=== PATIENT | male | born 1965 | race Caucasian/White ===

== ENCOUNTER 2017-07-10 08:21 | Emergency (ER) | payer MEDICARE ==
[~2017-07-10] VITALS: Ht 182.9 cm; Wt 113.6 kg
[~2017-07-10 08:21] MED LIST: ASPIRIN E.C. 8181 MG PO; ATIVAN 0.50.5 MG/TAB PO; CELEXA40 MG PO; CIPRO 500MG TA500 MG PO; COUMADIN 1MG1 MG/TAB PO; FLAGYL500 MG PO; JANTOVEN5 MG PO; KEPPRA1000 MG PO; KLONOPIN 1MG1 MG PO; LEVAQUIN 750MG750 M1 PO; LIPITOR20 MG PO; LOPRESSOR 225 MG/TAB PO; MEVACOR 20M20 MG/TAB PO; NORCO 325 MG-51 TAB PO; PLAVIX 75MG TAB75 MG PO; PRAVACHOL 40MG40 MG PO; RISPERDAL 0.5M0.5 MG PO; SENOKOT S 50 MG1 TAB PO; TYLENOL 325MG325 MG PO; VIMPAT150 MG PO; VIMPAT200 MG PO; ZOFRAN ODT4 MG PO; ZOLOFT 50MG50 MG PO
[2017-07-10 08:23] VITALS: TEMP 99
[2017-07-10] MEDS ORDERED: CIPRO 500MG TA500 MG PO (09:01)
[2017-07-10] MEDS ORDERED: FLAGYL500 MG PO (09:01)
[2017-07-10] MEDS ORDERED: NORCO 325 MG-51 TAB PO (09:03)
[2017-07-10] MEDS ORDERED: ZOFRAN 4MG T4 MG/TAB PO (09:03)
[2017-07-10 09:17] LABS: BASO # 0.1 (0.0-0.2); BASO % 0.4 % (0.0-2.0); EOS # 0.1 (0.0-0.7); EOS % 0.8 % (0-4.0); GRAN # 11.1 (1.4-6.5); GRAN % 80.4 % (42.2-75.2); HEMATOCRIT 43.9 % (42.0-52.0); HEMOGLOBIN 15.3 g/dl (13.5-18.0); LYMPH # 1.5 (1.2-3.4); LYMPH % 11.1 % (20.0-51.0); MEAN CELL VOLUME 93 fl (80.0-100.0); MEAN CORPUSCULAR HEMOGLOBIN 33 pg (27.0-31.0); MEAN CORPUSCULAR HGB CONC 35 g/dl (33.0-37.0); MEAN PLATELET VOLUME 9.7 fl (7.4-10.4); MONO # 0.9 (0.1-0.6); MONO % 6.5 % (1.7-9.3); PLATELET COUNT 207 K/mm3 (130-400); RED BLOOD COUNT 4.71 M/mm3 (4.20-5.60); REDCELL DISTRIBUTION WIDTH-CV 12.1 % (11.5-14.5); WHITE BLOOD COUNT 13.8 K/mm3 (4.8-10.8)
[2017-07-10 09:22] LABS: PROTHROMBIN TIME 23.3 SECONDS (9.7-12.8)
[2017-07-10 09:30] LABS: ADJUSTED CALCIUM 9.3 mg/dL (8.4-10.2); ALBUMIN 4.4 gm/dL (3.5-5.0); BILIRUBIN,TOTAL 1.2 mg/dL (0.0-1.0); C-REACTIVE PROTEIN 7.5 mg/dL (0.0-0.9); CALCIUM 9.6 mg/dL (8.4-10.2); CREATININE, serum 0.89 mg/dL (0.66-1.25); POTASSIUM 4.1 mmol/L (3.4-5.0); TOTAL PROTEIN 7.7 gm/dL (6.4-8.2)
[2017-07-10 10:10] LABS: PH 7 (5-8); SQUAMOUS EPITHELIAL None Seen /hpf; URINE APPEARANCE Clear; URINE BACTERIA None Seen /hpf; URINE BILIRUBIN Negative (NEGATIVE); URINE BLOOD Negative (NEGATIVE); URINE COLOR Yellow; URINE GLUCOSE Negative (NEGATIVE); URINE KETONE Negative (NEGATIVE); URINE RBC 0-2 /hpf; URINE UROBILINOGEN Negative (NEGATIVE); URINE WBC 0-2 /hpf
[2017-07-10 11:22] VITALS: BP 114/79; PULSE 86
== END 2017-07-10 11:05 | disposition home or self-care (01) ==
LOC: COL.ER 08:21
PROVIDERS: Emergency Medicine
DX: K57.92 Diverticulitis of intestine, part unspecified, without perforation or abscess without bleeding (principal); Z79.01 Long term (current) use of anticoagulants
CPT/HCPCS: J1170; J1885; J2405; J7030

== ENCOUNTER 2018-10-13 15:36 | Emergency (ER) | payer MEDICARE ==
[~2018-10-13] VITALS: Ht 182.9 cm; Wt 113.6 kg
[~2018-10-13 15:36] MED LIST changes: -COUMADIN 1MG1 MG/TAB PO; +COUMADIN 5MG5 MG/TAB PO; +ZOFRAN 4MG T4 MG/TAB PO; +ZOLOFT 100MG100 MG PO
[2018-10-13 15:44] VITALS: TEMP 99.4
[2018-10-13 16:24] LABS: COLLECTION METHOD CLEAN CATCH
[2018-10-13 16:28] LABS: BASO # 0.1 (0.0-0.2); BASO % 0.5 % (0.0-2.0); EOS # 0.2 (0.0-0.7); GRAN # 11.9 (1.4-6.5); GRAN % 76.5 % (42.2-75.2); HEMATOCRIT 41.3 % (42.0-52.0); HEMOGLOBIN 14.1 g/dl (13.5-18.0); LYMPH # 1.9 (1.2-3.4); LYMPH % 11.9 % (20.0-51.0); MEAN CELL VOLUME 94 fl (80.0-100.0); MEAN CORPUSCULAR HEMOGLOBIN 32 pg (27.0-31.0); MEAN CORPUSCULAR HGB CONC 34 g/dl (33.0-37.0); MEAN PLATELET VOLUME 9.5 fl (7.4-10.4); MONO # 1.4 (0.1-0.6); MONO % 8.8 % (1.7-9.3); PLATELET COUNT 255 K/mm3 (130-400); REDCELL DISTRIBUTION WIDTH-CV 11.6 % (11.5-14.5)
[2018-10-13 16:48] LABS: PH 6 (5-8); SQUAMOUS EPITHELIAL None Seen /hpf; URINE APPEARANCE Clear; URINE BACTERIA None Seen /hpf; URINE BILIRUBIN Negative (NEGATIVE); URINE BLOOD Negative (NEGATIVE); URINE COLOR Colorless; URINE GLUCOSE Negative (NEGATIVE); URINE KETONE Negative (NEGATIVE); URINE LEUKOCYTE ESTERASE Negative (NEGATIVE); URINE NITRATE Negative (NEGATIVE); URINE PROTEIN(semi-quant) Negative (NEGATIVE); URINE RBC 0-2 /hpf; URINE UROBILINOGEN Negative (NEGATIVE); URINE WBC None Seen /hpf
[2018-10-13 16:49] LABS: ALBUMIN 4.2 gm/dL (3.5-5.0); BILIRUBIN,TOTAL 0.4 mg/dL (0.0-1.0); CALCIUM 9.1 mg/dL (8.4-10.2); CREATININE, serum 0.78 mg/dL (0.66-1.25); POTASSIUM 3.7 mmol/L (3.4-5.0); TOTAL PROTEIN 7.8 gm/dL (6.4-8.2)
[2018-10-13 17:05] LABS: INR 2.2 (0.8-3.0); PROTHROMBIN TIME 24.9 SECONDS (9.7-12.8)
[2018-10-13] MEDS ORDERED: TESSALON P100 MG/CAP PO (18:12)
[2018-10-13] MEDS ORDERED: AMOXICILLIN 8751 TAB PO (18:12)
[2018-10-13 18:32] VITALS: BP 115/87; PULSE 92
== END 2018-10-13 18:33 | disposition home or self-care (01) ==
LOC: COL.ER 15:36
PROVIDERS: Emergency Medicine
DX: J32.9 Chronic sinusitis, unspecified (principal); F12.10 Cannabis abuse, uncomplicated; Z86.73 Personal history of transient ischemic attack (TIA), and cerebral infarction without residual deficits; Z79.01 Long term (current) use of anticoagulants
CPT/HCPCS: J7030

== ENCOUNTER 2019-04-07 15:05 | Emergency (ER) | payer OTHER ==
[~2019-04-07] VITALS: Ht 182.9 cm; Wt 113.6 kg
[~2019-04-07 15:05] MED LIST changes: +AMOXICILLIN 8751 TAB PO; +TESSALON P100 MG/CAP PO
[2019-04-07 15:08] VITALS: TEMP 98.1
[2019-04-07 15:32] LABS: HEMOGLOBIN 14.7 g/dl (13.5-18.0); MEAN CELL VOLUME 97 fl (80.0-100.0); MEAN CORPUSCULAR HEMOGLOBIN 32 pg (27.0-31.0); MEAN CORPUSCULAR HGB CONC 33 g/dl (33.0-37.0); MEAN PLATELET VOLUME 9.8 fl (7.4-10.4); PLATELET COUNT 249 K/mm3 (130-400); RED BLOOD COUNT 4.56 M/mm3 (4.20-5.60); REDCELL DISTRIBUTION WIDTH-CV 12.4 % (11.5-14.5)
[2019-04-07 15:43] LABS: ALBUMIN 4.2 gm/dL (3.5-5.0); BILIRUBIN,TOTAL 0.8 mg/dL (0.0-1.0); CALCIUM 9.5 mg/dL (8.4-10.2); CREATININE, serum 0.85 (0.66-1.25); POTASSIUM 3.6 mmol/L (3.4-5.0); TOTAL PROTEIN 8.2 gm/dL (6.4-8.2)
[2019-04-07 16:13] LABS: BAND 1 % (0-10); LYMPHOCYTE 8 % (20.0-51.0); NEUTROPHILS 84 % (42.0-75.2); PLATELET ESTIMATE NORMAL (NORMAL)
[2019-04-07 16:22] LABS: C-REACTIVE PROTEIN 39.3 mg/dL (0.0-0.9)
[2019-04-07] MEDS ORDERED: FLAGYL500 MG PO ×2 (16:34)
[2019-04-07] MEDS ORDERED: CIPRO 500MG TA500 MG PO ×2 (16:34)
[2019-04-07] MEDS ORDERED: AMOXICILLIN 8751 TAB PO (16:35)
[2019-04-07] MEDS ORDERED: NORCO 325 MG-51 TAB PO (16:35)
[2019-04-07] MEDS ORDERED: ZOFRAN ODT4 MG PO (16:35)
[2019-04-07 17:48] LABS: COLLECTION METHOD CLEAN CATCH
[2019-04-07 17:52] LABS: MUCOUS Present /lpf; PH 5 (5-8); SQUAMOUS EPITHELIAL None Seen /hpf; URINE APPEARANCE Clear; URINE BACTERIA None Seen /hpf; URINE BILIRUBIN Negative (NEGATIVE); URINE BLOOD Negative (NEGATIVE); URINE COLOR Amber; URINE GLUCOSE Negative (NEGATIVE); URINE KETONE Negative (NEGATIVE); URINE LEUKOCYTE ESTERASE Negative (NEGATIVE); URINE NITRATE Negative (NEGATIVE); URINE PROTEIN(semi-quant) 1+ (NEGATIVE); URINE RBC 0-2 /hpf; URINE UROBILINOGEN >=4.0 mg/dL (NEGATIVE)
[2019-04-07 18:56] VITALS: BP 133/80; PULSE 94
== END 2019-04-07 18:56 | disposition home or self-care (01) ==
LOC: COL.ER 15:05
PROVIDERS: Emergency Medicine
DX: K57.32 Diverticulitis of large intestine without perforation or abscess without bleeding (principal); Z79.01 Long term (current) use of anticoagulants
CPT/HCPCS: J0780; J7030